=== PATIENT | female | born 1965 | race Caucasian/White ===

== ENCOUNTER 2023-03-05 14:22 | Emergency (ER) | payer BC, SELFPAY ==
--- NOTE | ~2023-03-05 | XR_ITS ---
EXAM: XR elbow LT min 3V DATE: 03/05/2023 14:47 HISTORY: FALL today PAIN IN ELBOW . COMPARISON: None available. FINDINGS: Normal mineralization. Subtle cortical irregularity and transverse lucency at the radial n dave. No lytic or blastic lesion. Joint spaces are maintained. No erosion or periosteal change. Modera te elbow joint effusion. IMPRESSION: Suspected nondisplaced left radial neck fracture, correlate with point tenderness. Modera te left elbow joint effusion. Reviewed, dictated and finalized at location K. IMPRESSION: Suspected nondisplaced left radial neck fracture, correlate with po int tenderness. Moderate left elbow joint effusion.
--- NOTE | ~2023-03-05 | XR_ITS ---
EXAM: XR wrist LT min 3V DATE: 03/05/2023 14:48 HISTORY: FALL today PAIN IN WRIST . COMPARISON: None available. FINDINGS: Normal mineralization. No fracture or dislocation. No lytic or blastic lesion. Joint space s are maintained. No erosion or periosteal change. Soft tissues within normal limits. IMPRESSION: No acute osseous finding the left wrist. Reviewed, dictated and finalized at location K.
[2023-03-05 14:29] VITALS: BP 106/64; PULSE 65; RESP 16; TEMP 36.5; O2SAT 100
--- NOTE | 2023-03-05 14:44 | ED.UPPEXIN ---
HPI - Extremity Injury (Upper) General Chief Complaint: Extremity Injury, Upper Stated Complaint: INJURED L ARM Time Seen by Provider: 03/05/23 14:57 Source: patient and RN notes reviewed Mode of arrival: ambulatory Limitations: no limitations History of Present Illness HPI narrative: 57-year-old female presents with concern for left elbow and wrist pain. Reports this morning while playing tennis she fell and landed on her left arm. She reports she initially had pain in the wrist and elbow, now the pain is mainly the elbow, reports the wrist hurts when she bends it. She reports elbow pain is exacerbated when she rotates her wrist. She reports she took ibuprofen. MD complaint: injury to: left and elbow Related Data Home Medications Medication Instructions Recorded Confirmed estradiol 1 mg tablet 1 mg PO DAILY 03/05/23 03/05/23 progesterone micronized 200 mg 200 mg PO DAILY 03/05/23 03/05/23 capsule Allergies Allergy/AdvReac Type Severity Reaction Status Date / Time No Known Allergies Allergy Verified 03/05/23 14:39 Review of Systems Review of Systems: CONSTITUTIONAL: Denies malaise, chills, sweats, or fever. SKIN: Denies rash or itching, open skin, laceration, abrasion, redness, warmth, swelling. MUSCULOSKELETAL: Reports left elbow and rest pain NEUROLOGIC: Denies numbness, weakness All systems reviewed & are unremarkable except as noted in HPI and below PMFSH Comments At time of signature, agree with nursing past medical, surgical, social and family history. There is no relevant family history pertinent to the presenting complaint Exam Narrative: GENERAL: Well-appearing, well-nourished, and in no acute distress. HEAD: Normocephalic, atraumatic. EYES: PERRLA, conjunctivae clear NECK: Supple. CHEST: Speaks in full sentences. No respiratory distress. HEART: Regular rate and rhythm. Normal and equal peripheral pulses. EXTREMITIES: Left elbow, wrist, hand, digits have grossly normal strength and sensation, grossly normal range of motion. No edema or ecchymosis. Normal sensation with sensitivity to light touch and pain. Elbow tenderness. Elbow and wrist pain with rotation the wrist no open wounds, no skin tenting, no devitalized tissue or atrophy, no trophic changes, no obvious deformity, alignment normal, nearby joints and structures intact. Distal pulses palpable and equal bilaterally, skin warm, dry, pink. Capillary refill less than 3 seconds. SKIN: Warm, dry, no rash. NEURO: Alert and oriented x3. PSYCH: Normal mood and affect Course Course Emergency Course: Patient is aware of diagnosis, understands and agrees to treatment plan. Anticipatory guidance given. Patient agrees to follow-up as directed and is aware of reasons to seek care at the emergency department. Portions of this record may have been created with voice recognition software Level of Care: Express Care Visit Vital Signs Vital signs: Vital Signs Temperature 97.7 F 03/05/23 14:29 Pulse Rate 65 03/05/23 14:29 Respiratory Rate 16 03/05/23 14:29 Blood Pressure 106/64 03/05/23 14:29 Pulse Oximetry 100 03/05/23 14:29 Temperature 97.7 F 03/05/23 14:29 Pulse Rate 65 03/05/23 14:29 Respiratory Rate 16 03/05/23 14:29 Blood Pressure 106/64 03/05/23 14:29 Pulse Oximetry 100 03/05/23 14:29 Reviewed. MDM - Extremity Injury (Upper) MDM Narrative Medical decision making narrative: Patients injury and pain is consistent with musculoskeletal etiology. No signs of neurological or vascular compromise on exam. Compartments and tissues are soft without signs of compartment syndrome. Pain is felt appropriate for further evaluation on an outpatient basis. Imaging Data My impression: Images reviewed, interpreted by radiologist, agree, see report. Radiologist's impression: EXAM:? XR wrist LT min 3V DATE: 03/05/2023 14:48 HISTORY: FALL today? PAIN IN WRIST . COMPARISON:? None available. FINDINGS
--- NOTE | 2023-03-05 15:14 | PC.NURSE ---
+PMS POST SLING APPLICATION
== END 2023-03-05 15:10 | disposition home or self-care (01) ==
PROVIDERS: Emergency Provider Nurse Practitioner; PCP Family Medicine
DX: S52.135A Nondisplaced fracture of neck of left radius, initial encounter for closed fracture (principal); W19.XXXA Unspecified fall, initial encounter; Y93.73 Activity, racquet and hand sports; M25.422 Effusion, left elbow
CPT/HCPCS: 73080; 73110; 99214; A4565; G0463

== ENCOUNTER 2023-12-12 14:45 | Outpatient (RCR) | payer BC, SELFPAY ==
--- NOTE | 2023-11-18 09:23 | OPREHPOC ---
Outpatient Therapy Plan of Care This is a Multidisciplinary Plan of Care that may contain components documented by all disciplines (PT, OT, and ST.) PT Problem 1 PT Problem #1 Knowledge Deficit PT Goal 1 Goal [place] with HEP Target Visit 4 PT Problem 2 PT Problem #2 Impaired Flexibility PT Goal 1 Goal Demonstrate -20 degrees sandra Hamstring restriction to reduce posterior pelvic pull Target Visit 8 PT Goal 2 Goal Demonstrate minimal piriformis restriction bilaterally to reduce piriformis type syndrome and hip imbalance Target Visit 8 PT Problem 3 PT Problem #3 Impaired Strength PT Goal 1 Goal Improve sandra hip abduction strength to 4+/5 to improve lateral pelvic stability with ADLs Target Visit 8 PT Goal 2 Goal Patient will demonstrate ability to lift 20# with proper body mechanics to protect back during lifting activity Target Visit 8 PT Problem 4 PT Problem #4 Impaired Strength PT Goal 1 Goal Improve lower abdominal strength to 4+/5 to improve lumbar stability with ADLs Target Visit 8
--- NOTE | 2023-11-18 09:23 | PTOPEVAL1 ---
Assessment and note entered by Stanley Gomez, PT Evaluation Information Assessment Status Evaluation Diagnosis Acute low back pain with sciatica, Right side Onset 2021 Subjective Information Reports that she has had sciatica issues since . Back pain has been on and off for past couple years but has transitioned to every other month. Has trouble with bending forward activity at this time. Pain and stiffness are more present in the AM. Exercise does not seem to help it a this time but she has not done any formal treatment. She is very active and still tries to exercise through it. She does have episodes where she has trouble standing up or bending over. Reported Pain Level Pain Score 3: Self Report Assessment PT Clinical Summary Patient presents with signs and symptoms consistent with R sided sciatica with discogenic type natured pain. Patient will benefit from skilled therapy to promote hip disassociation, core strength, and hip strength with transition to body mechanics to ensure long term care social worker success of conservative measures. Plan of Care Interventions Electrical Stimulation,Gait Training,Hot Pack/Cold Pack,Manual Therapy,Mechanical Traction,Neuro Re- education,Therapeutic Activities,Therapeutic Exercise PT Services Indicated Yes Treatment Frequency and 1-2x/week for 8 visits Duration These treatments will address the objective and functional deficits as defined above. The patient will be advanced safely and appropriately in order for the patient to progress towards his/her prior level of function. Additional exercises will be introduced and as well as a comprehensive home exercise program upon discharge, if needed, ?to ensure carryover of functional gains achieved in the clinic. This treatment plan has been reviewed and agreement upon by the patient.
--- NOTE | 2023-12-01 09:31 | PCPTNOTE ---
Patient No show for 8am appt. Arrived at 8:45 for appt.
--- NOTE | 2024-02-02 08:33 | PTOPDC ---
Assessment and note entered by Ashanti Irwin, PT, DPT Evaluation Information Assessment Status Discharge - Pt Not Present Diagnosis Acute low back pain with sciatica, Right side Onset 2021 Subjective Information Called and follow up with pt as she missed her last appointment. She states she is doing well and no longer need additional PT. Assessment PT Clinical Summary Pt completed 5 visits of skilled therapy. She will be discharged at this time.
== END 2024-02-16 11:25 | disposition home or self-care (01) ==
LOC: ANHGOSHPT 14:45
PROVIDERS: PCP Family Medicine; Visit Provider Family Medicine
DX: M54.40 Lumbago with sciatica, unspecified side (principal)
CPT/HCPCS: 97110; 97140; 97161; 97530